=== PATIENT | female | born 1955 | race Caucasian/White ===

== ENCOUNTER 2017-09-12 18:36 | Emergency (ER) | payer SELFPAY ==
[2017-09-12 18:45] VITALS: TEMP 98.3; BMI 23.3
[2017-09-12] MEDS ORDERED: LABETALOL HCL 5 MG/1 ML (100MG/20 ML VIAL) IVPUSH ONE (23:04)
--- NOTE | 2017-09-12 23:13 | PDOC ---
History of Present Illness - General Chief Complaint: Blood Pressure Problem Stated Complaint: BLOOD PRESSURE PROBLEM Time Seen by Provider: 09/12/17 22:44 History Source: Patient, Unit Aide Tech Used ([id number] Dilma) Exam Limitations: Language Barrier - History of Present Illness Initial Comments: 09/12/17 23:06 61yo Female patient w/ PmHx: DM, HTN presents to ED c/o high blood pressure. Patient states she is visiting from [place] since 2000. She has no PCP, and currently takes Norvasc and Lorsartan po to control B/P. Patient reports she was prescribed these medications from a physician in [place]. She currently denies CP, Back pain, Abd pain, n/v/d, fever, h/a, dizziness, or any other complaints at this time. Timing/Duration: getting worse Severity: moderate Modifying Factors: improves with: medication. worse with: cold therapy, eating , immobilization, movement, rest, other Associated Symptoms: denies: denies symptoms, chest pain, cough, diaphoresis, fever/chills, headaches, loss of appetite, malaise, nausea/vomiting, rash, seizure, shortness of breath, syncope, weakness, other Aspirin Received prior to arrival: No: no aspirin today, unknown, 81 mg x 1, 81 mg x 2, 81 mg x 3, 81 mg x 4, 325 mg x 1, provided at home, provided by EMS, provided by [facility] Contraindications(Core Measure): No: Allergy, Other, Active Blding w/i 24 hrs., Plavix, Receiving Warfarin Past History - Travel Traveled outside of the country in the last 30 days: No Close contact w/someone who was outside of country & ill: No - Past Medical History Allergies/Adverse Reactions: Allergies Allergy/AdvReac Type Severity Reaction Status Date / Time No Known Allergies Allergy Verified 09/13/17 01:59 Home Medications: Ambulatory Orders Furosemide [Lasix] 25 mg PO BID 09/13/17 Lisinopril [Zestril] 100 mg PO DAILY 09/13/17 COPD: No Diabetes: Yes HTN: Yes - Surgical History Appendectomy: Yes - Suicide/Smoking/Psychosocial Hx Smoking History: Never smoked Have you smoked in the past 12 months: No Information on smoking cessation initiated: No Hx Alcohol Use: No Drug/Substance Use Hx: No Substance Use Type: None Review of Systems - Review of Systems Able to Perform ROS?: Yes Is the patient limited Mongolian proficient: No Constitutional: Yes: Other (High Blood Pressure Reading.) All Other Systems: Reviewed and Negative *Physical Exam - Vital Signs Last Vital Signs Temp Pulse Resp BP Pulse Ox 98.3 F 102 H 18 204/124 97 09/12/17 18:39 09/12/17 18:39 09/12/17 18:39 09/12/17 18:39 09/12/17 18:39 - Physical Exam General Appearance: Yes: Nourished, Appropriately Dressed. No: Apparent Distress, Mild Distress, Moderate Distress, Severe Distress HEENT: positive: EOMI, JERICHO, Normal ENT Inspection, Normal Voice, Symmetrical, TMs Normal, Pharynx Normal. negative: Pharyngeal Erythema, Tonsillar Exudate, Tonsillar Erythema, Nasal Congestion, Rhinorrhea, TM Bulging, TM Dull, TM Erythema Neck: positive: Trachea midline, Supple. negative: Lymphadenopathy (R), Lymphadenopathy (L), Rigidity, Tender lateral, Tender midline Respiratory/Chest: positive: Lungs Clear, Normal Breath Sounds. negative: Chest Tender, Respiratory Distress, Accessory Muscle Use, Labored Respiration, Rapid RR, Rhonchi, Stridor, Wheezing Cardiovascular: positive: Regular Rhythm, Regular Rate. negative: Tachycardia Gastrointestinal/Abdominal: positive: Normal Bowel Sounds, Soft. negative: Distended, Guarding, Rebound, Tenderness Musculoskeletal: positive: Normal Inspection. negative: CVA Tenderness Extremity: positive: Normal Capillary Refill, Normal Inspection, Normal Range of Motion. negative: Pedal Edema, Swelling, Calf Tenderness, Erythema, Inflammation Integumentary: positive: Normal Color, Dry, Warm Neurologic: positive: product craftsman II-XII NML intact, Fully Oriented, Alert, Normal Mood/ Affect, Normal Response, Motor Strength 5/5 ED Treatment Course - LABORATORY CBC & Chemistry Diagram: 09/12/17 23:55 09/12/17 23:55 Medical Decision Making - Medical Decision Making 09/12/17 23:09 Patient presents to ED c/o high b/p readings at home. Currently takes Lorsartan , and Norvasc po. Possible non-compliance. B/P rt arm- 185/109, lt arm- 199/ 111. Patient denies any other complaints of CP, Dizziness, h/a, syncope, fever, n/v/d, diff breathing, or SOB. Work-up: Labs, Urine, EKG, Chest X-ray, IV placement, IVP Labetalol for response. If no response then other vasoactive b/p lower agents. 09/13/17 03:05 Repeat B/P 150/90. Lopressor 50mg po ordered at this time. 09/13/17 04:10 Repeat B/P 144/84. Patient to be d/c'd to home. No other complaints noted at this time. *DC/Admit/Observation/Transfer Diagnosis at time of Disposition: Hypertension Qualifiers: Hypertension type: other secondary hypertension Qualified Code(s): I15.8 - Other secondary hypertension - Discharge Dispostion Disposition: HOME Condition at time of disposition: Improved Admit: No - Referrals Referrals: Juan M Aguayo MD [Staff Physician] - - Patient Instructions Printed Discharge Instructions: DI for High Blood Pressure, How to Monitor Your Blood Pressure at Home Additional Instructions: Nicole un seguimiento con el Dr. Aguayo (Cardiologa) la prxima semana para silvia evaluacin adicional. Llame para programar thayer shraddha. Contine tomando mag medicamentos segn lo recetado. Devuelva si alguna preocupacin para silvia evaluacin adicional. Adems, nicole un seguimiento con thayer proveedor de atencin primaria gisele se discuti. Follow up with Dr. Aguayo (Cardiology) next week for further evaluation. Call to schedule your appointment. Continue taking your medications as prescribed. Return if any concerns for further evaluation. Also, follow up with your primary care provider as discussed. Print Language: MALIAN - Post Discharge Activity
--- NOTE | 2017-09-12 23:22 | PDOC ---
*Physical Exam - Vital Signs Last Vital Signs Temp Pulse Resp BP Pulse Ox 98.3 F 102 H 18 204/124 97 09/12/17 18:39 09/12/17 18:39 09/12/17 18:39 09/12/17 18:39 09/12/17 18:39 ED Treatment Course - LABORATORY CBC & Chemistry Diagram: 09/12/17 23:55 09/12/17 23:55 Medical Decision Making - Medical Decision Making 09/12/17 23:22 agree with care from FINANCIAL DEVELOPER Julian *DC/Admit/Observation/Transfer Diagnosis at time of Disposition: Hypertension - Discharge Dispostion Disposition: HOME Condition at time of disposition: Improved - Referrals Referrals: Juan M Aguayo MD [Staff Physician] - - Patient Instructions Printed Discharge Instructions: DI for High Blood Pressure, How to Monitor Your Blood Pressure at Home Additional Instructions: Nicole un seguimiento con el Dr. Aguayo (Cardiologa) la prxima semana para silvia evaluacin adicional. Llame para programar thayer shraddha. Contine tomando mag medicamentos segn lo recetado. Devuelva si alguna preocupacin para silvia evaluacin adicional. Adems, nicole un seguimiento con thayer proveedor de atencin primaria gisele se discuti. Follow up with Dr. Aguayo (Cardiology) next week for further evaluation. Call to schedule your appointment. Continue taking your medications as prescribed. Return if any concerns for further evaluation. Also, follow up with your primary care provider as discussed. Print Language: PASHTO - Post Discharge Activity
[2017-09-12] MEDS ORDERED: LABETALOL HCL 5 MG/1 ML (200MG/40ML VIAL) IVPB ONE (23:42)
[2017-09-13 00:12] LABS: EOSINOPHIL 2.2 % (0-4.5); MCH 24.6 pg (25.7-33.7); MCHC 32.7 g/dl (32.0-36.0); MEAN CELL VOLUME 75.4 fl (80-96); MEAN PLT VOLUME 8.9 fl (7.5-11.1); NEUTROPHILS 56.8 % (42.8-82.8); PLATELET COUNT 239 K/MM3 (134-434); RDW 16.1 % (11.6-15.6)
[2017-09-13 00:43] LABS: ALBUMIN 3.7 g/dl (3.4-5.0); ANION GAP 10 (8-16); BILIRUBIN,TOTAL 0.4 mg/dL (0.2-1.0); CALCIUM 9.2 mg/dL (8.5-10.1); CO2 31 mmol/L (21-32); CREATININE 0.9 mg/dL (0.55-1.02); GLUCOSE,RANDOM 194 mg/dL (74-106); SGOT/AST 12 U/L (15-37); SGPT/ALT 28 U/L (12-78); TOT PROT 7.2 g/dl (6.4-8.2)
[2017-09-13 00:46] LABS: ALK PHOS 114 U/L (45-117); TROPONIN I < 0.02 ng/ml (0.00-0.05)
[2017-09-13] MEDS ORDERED: SODIUM CHLORIDE 500 ML IV STA (01:02)
[2017-09-13] MEDS ORDERED: LABETALOL HCL 5 MG/1 ML (100MG/20 ML VIAL) IVPUSH ONE (01:02)
[2017-09-13] MEDS ORDERED: POTASSIUM CHLORIDE TABS 20 MEQ TABLET.ER (FP) PO ONE ×2 (02:11→02:36)
[2017-09-13] MEDS ORDERED: METOPROLOL TARTRATE 50 MG TABLET (FP) PO ONE (02:53)
[2017-09-13] MEDS ORDERED: METOPROLOL TARTRATE 50 MG TABLET (FP) ONE (03:23)
[2017-09-13 03:25] VITALS: BP 130/80; PULSE 79
[2017-09-13 03:25] LABS: URINE APPEARANCE CLEAR; URINE BILIRUBIN NEGATIVE (NEGATIVE); URINE BLOOD NEGATIVE (NEGATIVE); URINE COLOR LT. YELLOW; URINE GLUCOSE (UA) NEGATIVE (NEGATIVE); URINE KETONE NEGATIVE (NEGATIVE); URINE NITRITE NEGATIVE (NEGATIVE); URINE PROTEIN NEGATIVE (NEGATIVE); URINE UROBILINOGEN 0.2 mg/dL (0.2-1.0)
[2017-09-13 08:59] LABS: URINE LEUK ESTERASE Negative (NEGATIVE)
== END 2017-09-13 05:01 | disposition home or self-care (01) ==
LOC: JER 18:36
PROC: 3E0337Z Introduction of Electrolytic and Water Balance Substance into Peripheral Vein, Percutaneous Approach (ICD-10-PCS; principal; 2017-09-12)
PROC: 3E033GC Introduction of Other Therapeutic Substance into Peripheral Vein, Percutaneous Approach (ICD-10-PCS; 2017-09-12)
PROC: 3E033GC Introduction of Other Therapeutic Substance into Peripheral Vein, Percutaneous Approach (ICD-10-PCS; 2017-09-12)
DX: I10 Essential (primary) hypertension (principal); E11.9 Type 2 diabetes mellitus without complications; E87.6 Hypokalemia
CPT/HCPCS: 36415; 80053; 81003; 82550; 84484; 85025; 99284-25